=== PATIENT | female | born 1930 | race Caucasian/White ===

== ENCOUNTER 2016-08-28 17:55 | Inpatient (IN) | payer OTHER ==
[~2016-08-28] VITALS: Ht 144.8 cm; Wt 71.2 kg
--- NOTE | ~2016-08-28 | EKG ---
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 : 1930 Requested By: Brendan Wray Order Number: [id number] MD: Ramone Javed Measurements Intervals [place] Rate: 95 P: 40 NH: 143 QRS: 66 QRSD: 82 T: 19 QT: 343 QTc: 431 Interpretive Statements Sinus rhythm Significant abnormality Compared to ECG 08/28/2016 19:42:26 Atrial premature complex(es) no longer present Electronically Signed On 08-31-2016 7:32:34 CDT by Ramone Javed [email or web address] <ELECTRONICALLY SIGNED> By: Ramone Javed MD, [facility] 08/31/16 0732 1014 1014 Ramone Javed MD, [facility] /EPI
--- NOTE | ~2016-08-28 | EKG ---
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 : 1930 Requested By: Clary Skelton Order Number: [id number] MD: Ramone Javed Measurements Intervals [place] Rate: 141 P: ID: QRS: 66 QRSD: 75 T: -17 QT: 289 QTc: 443 Interpretive Statements Atrial fibrillation with rapid V-rate Abnormal R-wave progression, early transition Repolarization abnormality, prob rate related Compared to ECG 08/28/2016 19:42:26 Atrial fibrillation has replaced sinus rhythm ST and T wave abnormalities more pronounced Electronically Signed On 08-31-2016 7:43:50 CDT by Ramone Javed [email or web address] <ELECTRONICALLY SIGNED> By: Ramone Javed MD, [facility] 08/31/16 0743 0105 0105 Ramone Javed MD, [facility] /EPI
--- NOTE | ~2016-08-28 | HC ---
[facility] [place] [address] CONSULTATION Name: CHAZ AGRAWAL Room #: 445-P ADM IN M.R.#: [id number] Admission: 08/28/16 Attend Phys: Enrike Panda MD Discharge: Date of : 29 Report #: [id number] THIS REPORT FOR: //name// CC: Enrike Sheikh Bernardo DATE OF SERVICE: 09/03/2016 HISTORY OF PRESENT ILLNESS: The patient is an 86-year-old female who had a fall resulting in a right hip fracture on 08/28/2016. She underwent a closed reduction and percutaneous pinning of her right femoral neck fracture on 08/29/2016. The patient was doing well postoperatively. She was placed on Xarelto and had a bloody stool yesterday, which she describes as a dark stool. She has never had a colonoscopy or upper endoscopy in the past. She states she had some blood in her stools several weeks ago and this was attributed to possible diverticulosis, although again, she states she has never had a colonoscopy. She denies any abdominal pain. She was taking aspirin on a p.r.n. basis at home. She denies any nausea or vomiting. She denies any dysphagia. Her weight has been stable. She does complain of constipation. In general, she was taking Ex-Lax on a p.r.n. basis. The patient's hemoglobin today is 9.3, on admission was 12.8. She has not received any blood transfusions. She has a history of COPD. She is generally not on oxygen at home. She is currently on 5 liters of nasal canula oxygen. PAST MEDICAL HISTORY: COPD, recent right hip fracture status post surgical fixation, hypothyroidism, previous hysterectomy. FAMILY HISTORY: Negative for colon cancer. ALLERGIES: No known drug allergies. MEDICATIONS: Prior to this admission was aspirin. SOCIAL HISTORY: She denies any tobacco or alcohol use at this time. REVIEW OF SYSTEMS: As per HPI. PHYSICAL EXAMINATION: VITAL SIGNS: Temperature is 97.4, pulse 60, blood pressure 135/50, respiratory rate is 20. GENERAL: She is alert and oriented times 3 in no acute distress. HEENT: Sclerae nonicteric. Oropharynx clear. [address] [address] CONSULTATION Name: CHAZ AGRAWAL Room #: 445-P [facility] IN M.R.#: [id number] Admission: 08/28/16 Attend Phys: Enrike Panda MD Discharge: Date of : 29 Report #: [id number] NECK: Supple, without lymphadenopathy. CARDIOVASCULAR: Regular rate and rhythm. CHEST: Decreased breath sounds bilaterally. ABDOMEN: Soft, nontender, nondistended, normoactive bowel sounds. EXTREMITIES: No cyanosis, clubbing or edema. LABORATORY DATA: Sodium 143, potassium 3.7, chloride 104, bicarbonate 35, BUN 25, creatinine 0.7, glucose 114. INR 1.0. WBC is 11.5, hemoglobin 9.3, platelet count is 323. Chest x-ray on 09/01/2016, cardiomegaly with increasing interstitial prominence suggestive of mild vascular congestion with patchy bilateral lower lobe atelectasis/pneumonitis, right greater than left, probable small right pleural effusion, no evidence of pneumothorax. ASSESSMENT AND PLAN: Gastrointestinal bleed, anemia. The patient reportedly with a dark stool suggesting the possibility of an upper gastrointestinal bleed. She had been on aspirin at home. BUN is mildly elevated. Also of note, the patient has never had a colonoscopy. I had a long discussion with the patient regarding her bleed. She also had a stool that was Hemoccult positive. She has had a drop in her hemoglobin, but appears stable at this time. She was started on PPI therapy yesterday. I would recommend continuing PPI therapy and monitoring hemoglobin closely. Would consider endoscopy; however, the patient is on 5 liters of oxygen at this time and is a very high risk for sedation; therefore, we will continue to monitor closely. If she has a continued drop in her hemoglobin, may consider upper endoscopy in the near future if and when pulmonary function improves. Also, the patient has never had a screening colonoscopy, would consider that at some point as well. We will continue to follow closely. Thank you for allowing me to participate in her care. <ELECTRONICALLY SIGNED> By: Daniel Butler MD 09/04/16 1132 1101 1538 Daniel Butler MD /nt
--- NOTE | ~2016-08-28 | O ---
[facility] [place] [address] OPERATIVE REPORT Name: CHAZ AGRAWAL Room #: 445-P ADM IN M.R.#: [id number] Admission: 08/28/16 Attend Phys: Enrike Panda MD Discharge: Date of : 29 Report #: [id number] THIS REPORT FOR: //name// CC: Enrike Sheikh Bernardo DATE OF SERVICE: 08/29/2016 SERVICE: Orthopedics. FACILITY: [facility] SURGEON: Brendan Wray M.D. TRAY CHECKER SURGEONS: None. PREOPERATIVE DIAGNOSIS: Valgus impacted right femoral neck fracture. POSTOPERATIVE DIAGNOSIS: Valgus impacted right femoral neck fracture. PROCEDURE: Closed reduction percutaneous pinning, right femoral neck fracture. COMPLICATIONS: None. DRAINS: None. SPECIMENS: None. ANESTHESIA TYPE: General endotracheal. ESTIMATED BLOOD LOSS: 50 mL. FINDINGS: 1. Stable reduction with transfer to the operating table and fluoroscopic evaluation. 2. Synthes Titanium cannulated screws times 3. Two 70 mm and one 75 mm in length with washers applied. HISTORY AND INDICATIONS: The patient is an 86-year-old female with COPD, who sustained a same-level fall that resulted in a valgus impacted femoral neck fracture. I had a discussion with her and her daughter last night in great detail about the risks, benefits, alternatives and indications for surgical treatment of hip fractures as well as the surgical option of pinning versus hemiarthroplasty. They were in favor of pinning and I thought this was reasonable option based on the x-rays and her COPD in order to minimize the anesthetic . Risks included but not limited to pain, bleeding, infection, [facility] [address] [place] [address] OPERATIVE REPORT Name: CHAZ AGRAWAL Room #: 445-P [facility] IN ..#: [id number] Admission: 08/28/16 Attend Phys: Enrike Panda MD Discharge: Date of : 29 Report #: [id number] injury to nerves or blood vessels, persistent pain despite surgical intervention, failure of any surgical repair, malunion, nonunion, need for further surgery including revision to hemiarthroplasty and complications related to anesthesia such as stroke, heart attack, pulmonary complications, thromboembolic disease and . Despite these risks, she wished to proceed. PROCEDURE IN DETAIL: After right lower extremity was correctly identified in the preoperative holding area as the operative extremity, the patient was taken to the operating room and placed supine on the operating table. After general endotracheal anesthesia was induced without complication, all bony prominences and subcutaneous nerves were padded appropriately. Prophylactic antibiotics with 2 grams Ancef were administered at the appropriate time. Bilateral lower extremities were placed in traction. X-ray was used to confirm that the fracture alignment was maintained from the initial injury films and then the right lower extremity was prepped and draped in a standard sterile fashion. Under fluoroscopic guidance on multiple planes, the pin trajectory was identified. A 1-inch incision was made on the lateral aspect of the hip. Dissection was taken down in a percutaneous fashion with full-thickness skin developed down to the lateral cortex. The first guidepin was placed as far inferior as possible, also favoring it more posterior to provide some bony support inferiorly and posteriorly. This was advanced under multiple planes of x-ray. Two additional pins were placed more proximally, creating an inverted triangle configuration. The lateral cortex was then over reamed and the first 75-mm length Titanium 7.3-mm cannulated screw was then advanced under fluoroscopy on the inferior cortex. The 75 mm screw was selected as the measurement was approximately 73 mm in length and so I placed 2 washers laterally in order to shorten the length, but to allow maximal thread purchase across the distal segment on the femoral head. This was applied and then compression was applied across the fracture through the screw and the fracture line was noted to compress slightly. A similar technique was used to place the 2 screws proximally, which were both 70 mm in length and 1 washer was used on each of the lateral cortex. Bone was quite soft. After this was completed, all 3 screws were tight with good purchase. The wound was then copiously irrigated after final x-rays were taken to confirm appropriate position of all hardware. The deep fascia was closed with an 0 Vicryl suture in an interrupted fashion and then the skin was closed with 2-0 Vicryl followed by lauren and a sterile dressing was applied. The patient will be touchdown weightbearing in the right lower extremity. There were no complications. All counts were recorded as correct. <ELECTRONICALLY SIGNED> By: Brendan Wray MD 08/29/16 1814 1233 1405 Brendan Wray MD /nt
--- NOTE | ~2016-08-28 | EKG ---
[address] [place] [address] ELECTROCARDIOGRAM REPORT Name: BEST AGRAWALViral Vazquez Room #: 547-P ADM IN M.R.#: [id number] Admission: 08/28/16 Attend Phys: Enrike Panda MD Discharge: Date of : 29 Report #: [id number] THIS REPORT FOR: //name// [facility] Test Date: 2016-08-28 Test Time: 19:42:26 Pat Name: CHAZ AGRAWAL Department: Room: 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
--- NOTE | ~2016-08-28 | D ---
[facility] [place] [address] DISCHARGE SUMMARY Name: NGHIACHAZ George Room #: 445-P [facility] IN M.R.#: [id number] Admission: 08/28/16 Attend Phys: Enrike Panda MD Discharge: 09/04/16 Date of : 29 Report #: [id number] THIS REPORT FOR: //name// CC: Enrike Sheikh Bernardo FINAL DIAGNOSES: 1. Right hip fracture. 2. Paroxysmal atrial fibrillation. 3. Chronic obstructive pulmonary disease exacerbation. 4. Pulmonary edema. 5. Gastrointestinal bleed. HOSPITAL COURSE: The patient was admitted from home with a fall and diagnosed with a right hip fracture. She underwent surgical repair. Please see the note. Postoperatively, she had complications of pulmonary edema, COPD exacerbation, paroxysmal atrial fibrillation and confusion. She was treated medically and supportive measures with the pulmonary service and Cardiology. They started on Xarelto for DVT prophylaxis, but had a concern for GI bleed and it was discontinued. GI service did not feel she was medically stable to pursue endoscopy at this point; therefore, anticoagulation was just discontinued. She was placed on a proton pump inhibitor. She had no other interval complications. PHYSICAL EXAMINATION: GENERAL: On the day of discharge, she was awake and alert, sitting up in the bedside table. VITAL SIGNS: Temperature was 36.5, pulse 56, respirations 20, blood pressure 145/34 and O2 sat 98% on oxygen. LUNGS: Clear. HEART: Regular. ABDOMEN: Soft. EXTREMITIES: Had no edema. DISPOSITION: She is being transferred to ____ for therapy. She will continue toe touch weightbearing. Medications have been signed and transfer. Follow up with me in 6 weeks or after skilled discharge and Orthopedics in 2 weeks. <ELECTRONICALLY SIGNED> By: Enrike Panda MD 09/05/16 0954 1332 1512 Enrike Panda MD /nt
--- NOTE | ~2016-08-28 | HC ---
[facility] [place] [address] CONSULTATION Name: CHAZ AGRAWAL Room #: 445-P ADM IN M.R.#: [id number] Admission: 08/28/16 Attend Phys: Enrike Panda MD Discharge: Date of : 29 Report #: [id number] THIS REPORT FOR: //name// CC: Enrike Sheikh Bernardo SERVICE: Orthopedics. REQUESTING PHYSICIAN: Enrike Panda M.D. REASON FOR CONSULTATION: Right hip fracture. PAST MEDICAL HISTORY: COPD and diverticulitis. MEDICATIONS: None. ALLERGIES: None. PAST SURGICAL HISTORY: Right ankle open reduction and internal fixation approximately 10 years ago. SOCIAL HISTORY: The patient has a history of tobacco use. She no longer uses tobacco. There is no alcohol or drug abuse. She lives in [place] with her son. FAMILY HISTORY: Diverticulitis. REVIEW OF SYSTEMS: Negative for chest pain, shortness of breath, mental status changes, nausea, vomiting, diarrhea, skin changes or any urinary complaints. Positive only for hip pain and recent diverticulitis. CHIEF COMPLAINT: Right hip pain. HISTORY OF PRESENT ILLNESS: The patient is an 86-year-old female who was going to [place] with her son when she fell on a curb and landed on her right side. She sustained a contusion to the right elbow and a valgus impacted-type right femoral neck fracture. She was admitted to the hospital after her workup demonstrated the previously stated diagnoses. Orthopedics was consulted for evaluation and she was admitted to Dr. Enrike Panda' service. PHYSICAL EXAMINATION: VITAL SIGNS: Pulse 79, respirations 20, blood pressure 160s/70s and pulse ox 89% to 90% while I am evaluating her. She is 92% to 94% throughout the stay. Her oxygen level improves when she is instructed to breathe through the nasal cannula. GENERAL: She is elderly appearing female who appears her stated age. She is lying supine in the hospital bed, in no acute distress. She is using accessory [address] [address] CONSULTATION Name: CHAZ AGRAWAL Room #: 445-P ADM IN .R.#: [id number] Admission: 08/28/16 Attend Phys: Enrike Panda MD Discharge: Date of : 29 Report #: [id number] muscles in the abdomen for respiration. She is appropriate and cooperative with a normal affect. EXTREMITIES: Bilateral upper extremities, she has range of motion of the shoulders, elbows, wrists and fingers. She has contusion on the right elbow. She is grossly neurovascularly intact. Right lower extremity has a 1+ palpable pulse, which is symmetric with the left side. The right hip is not manipulated due to the known diagnosis. Palpation of the thigh, knee, leg and ankle is negative for acute injury. She has motor and sensory function intact to the foot distally. Left lower extremity shows no signs of acute orthopedic injury. She is grossly neurovascularly intact. IMAGING: Two views of the elbow show some mild degenerative changes. There is no acute fracture. AP pelvis & lateral of the right hip shows a right femoral neck fracture with a valgus impacted pattern. IMPRESSION: An 86-year-old female with history of chronic obstructive pulmonary disease with a right valgus impacted femoral neck fracture. PLAN: I had a long discussion with the patient as well as her daughter who is at the bedside regarding the optimal treatment options for hip fracture. We reviewed the risks, benefits, alternatives and indications for surgical versus nonsurgical treatment as well as optimal treatment for a femoral neck fracture, specifically, reviewing pinning versus hemiarthroplasty. Based on the x-rays, I recommend percutaneous pinning as the surgical burden will be less significant and I think this is likely to successfully heal without the need for more invasive surgery with arthroplasty. Questions were answered. We reviewed the need for early and aggressive physical therapy postoperatively. <ELECTRONICALLY SIGNED> By: Brendan Wray MD 08/29/16 1814 2257 1100 Brendan Wray MD /nt
--- NOTE | ~2016-08-28 | HC ---
[facility] [place] [address] CONSULTATION Name: CHAZ AGRAWAL Room #: 445-P [facility] IN M.R.#: [id number] Admission: 08/28/16 Attend Phys: Anna Panda MD Discharge: 09/04/16 Date of : 29 Report #: [id number] THIS REPORT FOR: //name// CC: ANNA Panda Stany Bernardo DATE OF SERVICE: 08/30/2016 REFERRING PROVIDER: Anna Panda M.D. REASON FOR CONSULTATION: Hypoxemia and COPD. HISTORY OF PRESENT ILLNESS: Our group was asked to see the patient in consultation while hospitalized at [facility]. The patient is not reliable historian at this time as she is a little confused, history taken from discussion with healthcare providers and review of records. An 86-year-old woman with a prior history of tobacco use and COPD, states she is not really on any inhaled therapy at home. At this time, he does not require supplemental oxygen. Apparently had a fall 2 days ago and noted to have right proximal femur fracture, underwent surgical intervention yesterday, had some confusion overnight postoperatively. Did require BiPAP, details are little bit scanty in the records. The patient was hypoxemic and placed on supplemental BiPAP due to significant hypoxemia. We were asked to see this afternoon to further evaluate. The patient is off BiPAP on 5 liters, appears reasonably comfortable, oxygen saturation 93-94% with minimal cough. No fever, chills or sweats, not feeling ill prior to admission. Of note, otherwise had also had some difficulty with atrial fibrillation, rapid ventricular response that occurred overnight and has been doing better since rate has been controlled currently on amiodarone drip. Does not appear in any distress at this time, appears pleasant without tachypnea; however, is somewhat confused. ALLERGIES: No known drug allergies. PAST MEDICAL HISTORY: 1. History of tobacco use with a history of COPD, severity not quantified and records available. Does not require supplemental oxygen. 2. Hypothyroidism. OUTPATIENT MEDICATIONS: None. PAST SURGICAL HISTORY: Hysterectomy and prior ankle fracture repair. SOCIAL HISTORY: No active tobacco or alcohol use. Currently lives with son. FAMILY HISTORY: Noncontributory due to advanced age. [facility] [address] [place] [address] CONSULTATION Name: CHAZ AGRAWAL Room #: 445-P [facility] IN [facility].#: [id number] Admission: 08/28/16 Attend Phys: Anna Panda MD Discharge: 09/04/16 Date of : 29 Report #: [id number] REVIEW OF SYSTEMS: A 12-point review of systems otherwise negative except as described in HPI and difficult otherwise to obtain due to current confusion. PHYSICAL EXAMINATION: VITAL SIGNS: Afebrile, pulse 60s and regular, respiratory rate of 20s, blood pressure 122/37, oxygen saturation 93% on 5 liters nasal cannula. GENERAL: This is a pleasant elderly woman in no distress. ENT: Reveals no dental caries. Mallampati 2 airway. NECK: Supple, no lymphadenopathy. LUNGS: Diminished, occasional expiratory wheezes noted. CARDIOVASCULAR: Heart was regular. No murmurs noted. ABDOMEN: Soft, mild distention, no masses. EXTREMITIES: Revealed soft wrist restraints in place and the upper extremities with no significant edema, 2+ pulses noted throughout. LABORATORY DATA: White blood cell count 17,000, hemoglobin 11, hematocrit 34, platelet count 247. Sodium 137, potassium 4.0, chloride 102, bicarbonate 27, BUN 17, creatinine 0.9, glucose is 140. TSH 2.56. INR 1.0. Arterial blood gas yesterday on 50% face simple mask revealed pH 7.35, pCO2 of 50, pO2 of 74, bicarbonate 27. Chest x-ray reveals some mild cardiomegaly with probable left atrial enlargement as evidenced by straightening of the left heart border and splaying of the mainstem stem iris, some mild pulmonary artery enlargement also appreciated, mild atelectasis and small pleural effusion in the right also appreciated on portable film done this morning at 8:05, some mild pulmonary vascular engorgements may suggest mild pulmonary edema also noted. IMPRESSION: 1. Status post right hip Open reduction and internal fixation. 2. Chronic obstructive pulmonary disease with some active wheezes on exam. 3. Leukocytosis. 4. Mild pulmonary edema. 5. Atelectasis. 6. Small pleural effusion. 7. Mild delirium likely multifactorial to include pain medications. SUGGESTIONS: 1. Follow up arterial blood gas. 2. Titrate FiO2. 3. EzPAP. 4. Continue with nocturnal BiPAP as tolerated. 5. Bronchodilators, we will change to levalbuterol given rapid ventricular response as well as add nebulized steroids. 6. No systemic steroids at this time. 7. We will continue to follow along with you. [facility] [address] [place] [address] CONSULTATION Name: CHAZ AGRAWAL Room #: 445-P [facility] IN M.R.#: [id number] Admission: 08/28/16 Attend Phys: Anna Panda MD Discharge: 09/04/16 Date of : 29 Report #: [id number] Thank you for requesting our suggestions. <ELECTRONICALLY SIGNED> By: Santiago Blackwell MD 09/25/16 1253 1430 2134 Santiago Blackwell MD /nt
--- NOTE | ~2016-08-28 | H ---
[facility] [place] [address] HISTORY AND PHYSICAL Name: CHAZ AGRAWAL Room #: 547-P ADM IN M.R.#: [id number] Admission: 08/28/16 Attend Phys: Enrike Panda MD Discharge: Date of : 28 Report #: [id number] THIS REPORT FOR: //name// CC: Enrike Sheikh Bernardo DATE OF SERVICE: 08/28/2016 CHIEF COMPLAINT: Right hip pain. HISTORY OF PRESENT ILLNESS: The patient is an 86-year-old female who was brought to the Emergency Room after suffering a fall when she tripped over a curb in a parking lot and was too week to get up, her son has to help her up but she was having pain on her right leg, was unable to stand or walk, evaluation in the ER has revealed a proximal right femur fracture. PAST MEDICAL HISTORY: Chronic obstructive pulmonary disease, hypothyroidism. PAST SURGICAL HISTORY: She has had a hysterectomy. FAMILY HISTORY: Noncontributory. SOCIAL HISTORY: No chronic alcohol or tobacco use. ALLERGIES: None. MEDICATIONS: None. REVIEW OF SYSTEMS: She denies shortness of breath, chest pain, abdominal pain, nausea, vomiting, diarrhea, constipation, dysuria, syncope. OBJECTIVE: VITAL SIGNS: Temperature 36.5, pulse 96, respirations 26, blood pressure 148/53, O2 sat % on 2 liters. GENERAL: She is awake and alert, in no distress. LUNGS: Clear with no wheezing. HEART: Regular, without murmur. ABDOMEN: Soft, normoactive bowel sounds, no palpable masses, nontender. EXTREMITIES: No cyanosis, clubbing or edema. NEUROLOGIC: Motor strength 4/5 throughout. LABORATORY DATA: White cell count of 16, hemoglobin 12, coagulation studies are normal chemistries normal. Chest x-ray shows some mild atelectasis. EKG revealed sinus rhythm with PACs. ASSESSMENT: [facility] [address] [place] [address] HISTORY AND PHYSICAL Name: CHAZ AGRAWAL Room #: 547-P [facility] IN [facility]#: [id number] Admission: 08/28/16 Attend Phys: Enrike Panda MD Discharge: Date of : 29 Report #: [id number] 1. Right femoral neck fracture. 2. Chronic obstructive pulmonary disease. 3. Hypothyroidism. 4. Gait disturbance. 5. Accidental fall. PLAN: She is clear to proceed with surgery today and pulmonary treatments will be ordered, she had very faint wheezing on exam and there is a remote history of emphysema, although she has never been treated. Postoperatively, then we will consider her rehabilitation options. <ELECTRONICALLY SIGNED> By: Enrike Panda MD 08/29/16 1411 0838 [id number] Enrike Panda MD /nt
--- NOTE | ~2016-08-28 | 2DMMODE ---
[facility] [place] [address] 2 D/M-MODE ECHOCARDIOGRAM Name: CHAZ AGRAWAL Room #: 445-P ADM IN ..#: [id number] Admission: 08/28/16 Attend Phys: Suhail Venegas Discharge: Date of : 28 Date of Service: 08/30/16 [facility] [place] Report #: [id number] THIS REPORT FOR: //name// APPROVED REPORT Study performed: 08/30/2016 11:17:11 EXAM: Comprehensive 2D, Doppler, and color-flow Echocardiogram Patient Location: Echo lab Blood Pressure: 117/32 mmHg HR: 70 bpm Other Information Study Quality: Fair Indications COPD Post op Atrial firbrillation. 2D Dimensions RVDd: 32.93 mm IVC: 21.00 mm Volumes Left Atrial Volume (Systole) Single Plane 4CH: 44.73 mL Single Plane 2CH: 44.87 mL LA ESV Index: 31.00 mL/m2 Aortic Valve AoV Peak Anthony.: 1.51 m/s AI PHT: 345.52 ms AO Peak Gr.: 9.07 mmHg LV Max P.91 mmHg LV Max: 1.41 m/s AI Vmax: 3.00 m/s AI [place]: 2.52 m/s2 Mitral Valve MV Peak Gr.: 16.34 mmHg MV PHT: 82.52 ms MV Mean Gr.: 5.57 mmHg MV E Max Anthony.: 1.69 m/s E/A Ratio: 1.2 MV A Anthony.: 1.45 m/s MV Decel. Time: 284.54 ms MV Max Anthony.: 2.02 m/s [facility] [address] [place] [address] 2 D/M-MODE ECHOCARDIOGRAM Name: CHAZ AGRAWAL Room #: 445-P ADM IN [facility]#: [id number] Admission: 08/28/16 Attend Phys: Suhail Venegas Discharge: Date of : 28 Date of Service: 08/30/16 1300 Report #: [id number] MV Mean Anthony.: 1.08 m/s MV VTI: 647.10 mm Pulmonary Valve PV Peak Anthony.: 0.99 m/s PV Peak Gr.: 3.92 mmHg Tricuspid Valve TR Peak Anthony.: 3.93 m/s RAP Estimate: 10.00 mmHg TR Peak Gr.: 61.90 mmHg Left Ventricle The left ventricle is normal size. There is normal LV segmental wall motion. There is normal left ventricular wall thickness. Left ventricular systolic function is hyperdynamic. LVEF is 65-70%. The left ventricular diastolic function is normal. Right Ventricle The right ventricle is normal size. The right ventricular systolic function is normal. Atria The left atrium size is normal. The right atrium size is normal. Aortic Valve The aortic valve is normal in structure. Aortic valve is calcified. Mild to moderate aortic regurgitation. There is no aortic valvular stenosis. Mitral Valve The mitral valve is normal in structure. Mild mitral regurgitation. There is no mitral valve stenosis. Tricuspid Valve The tricuspid valve is normal in structure. There is mild tricuspid regurgitation. The right atrial pressure is estimated at 10 mmHg. There is severe pulmonary hypertension. The estimated PAPwas 72 mmHg. Pulmonic Valve The pulmonary valve is normal in structure. There is no pulmonic valvular regurgitation. Great Vessels The aortic root is normal in size. IVC is dilated and collapses >50% with inspiration. [facility] [address] [place] [address] 2 D/M-MODE ECHOCARDIOGRAM Name: CHAZ AGRAWAL Room #: 445-P ADM IN .R.#: [id number] Admission: 08/28/16 Attend Phys: Suhail Venegas Discharge: Date of : 28 Date of Service: 08/30/16 1300 Report #: [id number] Pericardium There is no pericardial effusion. <Conclusion> The left ventricle is normal size. LVEF is 65-70%. The aortic valve is normal in structure. Aortic valve is mildly calcified. Mild aortic regurgitation. The mitral valve is normal in structure. Mild mitral regurgitation. The tricuspid valve is normal in structure. There is mild tricuspid regurgitation. The right atrial pressure is estimated at 10 mmHg. There is severe pulmonary hypertension. The estimated PAPwas 72 mmHg. <ELECTRONICALLY SIGNED> By: Dominick Serrano MD 08/30/16 1300 1300 1300 Dominick Serrano MD /INF
[2016-08-28 17:55] VITALS: BP 177/52
[~2016-08-28 17:55] MED LIST: THYROID MED
[2016-08-28 21:02] LABS: HEMATOCRIT 40.3 % (37.0-47.0); HEMOGLOBIN 12.8 gm/dL (12.0-15.0); MCH 26.1 pg (26.0-34.0); MCHC 31.9 g/dL (28.0-37.0); MCV 82.1 fL (80.0-100.0); RBC 4.91 mil/uL (4.20-5.00); RDW 14.7 % (10.5-14.5); WBC 16.9 thou/uL (4.0-11.0)
[2016-08-28 21:12] LABS: CALCIUM 8.9 mg/dL (8.5-10.1); CREATININE 0.7 mg/dL (0.6-1.0); POTASSIUM 4.2 mmol/L (3.5-5.1)
[2016-08-28 21:15] LABS: PROTIME 10.6 Seconds (9.3-11.4)
[2016-08-28 23:09] VITALS: BP 164/76
[2016-08-29] VITALS (12 sets, daily range): BP systolic 98–148; BP diastolic 36–62
[2016-08-29 04:55] LABS: URINE BILIRUBIN NEGATIVE (Negative); URINE BLOOD TRACE (Negative); URINE COLOR YELLOW; URINE GLUCOSE-RANDOM* NEGATIVE (Negative); URINE KETONES NEGATIVE (Negative); URINE NITRITE NEGATIVE (Negative); URINE PROTEIN (DIPSTICK) NEGATIVE (Negative); URINE SPECIFIC GRAVITY >= 1.030 (1.003-1.035); URINE UROBILINOGEN 0.2 E.U./dl (0.2-1.0)
[2016-08-30] VITALS (17 sets, daily range): BP systolic 62–129; BP diastolic 24–78
[2016-08-30 01:57] LABS: ABG SAMPLE TYPE ARTERIAL; BE(vivo) 0.5 mmol/L (-2 to +3); HCO3 26.7 mmol/L (22.0-26.0); LACTATE 1.42 mmol/L (0.5-2.0); O2(CT) 16.3 mL/dL (15.0-23.0); O2Hb 93.7 % (92.0-98.0); PCO2 49.7 mmHg (35.0-45.0); PO2 74.4 mmHg (80.0-100.0); STICK SITE R.BRACHIAL; pH 7.348 (7.360-7.450); sO2 94.1 % (92.0-98.0); tCO2 28.2 mmol/L (24.0-30.0)
[2016-08-30 05:27] LABS: HEMATOCRIT 33.8 % (37.0-47.0); MCH 26.1 pg (26.0-34.0); MCHC 31.5 g/dL (28.0-37.0); MCV 82.9 fL (80.0-100.0); RBC 4.07 mil/uL (4.20-5.00); RDW 15.2 % (10.5-14.5); WBC 16.6 thou/uL (4.0-11.0)
[2016-08-30 05:31] LABS: HEMOGLOBIN 10.6 gm/dL (12.0-15.0)
[2016-08-30 05:39] LABS: CALCIUM 8.4 mg/dL (8.5-10.1); CREATININE 0.9 mg/dL (0.6-1.0)
[2016-08-31] VITALS (8 sets, daily range): BP systolic 117–156; BP diastolic 31–55
[2016-08-31 04:16] LABS: HEMATOCRIT 29.9 % (37.0-47.0); HEMOGLOBIN 9.5 gm/dL (12.0-15.0); MCH 26.6 pg (26.0-34.0); MCHC 31.9 g/dL (28.0-37.0); MCV 83.2 fL (80.0-100.0); RBC 3.6 mil/uL (4.20-5.00); RDW 15.2 % (10.5-14.5); WBC 15.2 thou/uL (4.0-11.0)
[2016-08-31 04:41] LABS: CREATININE 1.1 mg/dL (0.6-1.0); POTASSIUM 4.2 mmol/L (3.5-5.1)
[2016-08-31 07:02] LABS: ABG SAMPLE TYPE ARTERIAL; BE(vivo) -2.8 mmol/L (-2 to +3); HCO3 23.6 mmol/L (22.0-26.0); LACTATE 1.12 mmol/L (0.5-2.0); O2Hb 93.7 % (92.0-98.0); PCO2 47.7 mmHg (35.0-45.0); PO2 76.2 mmHg (80.0-100.0); pH 7.312 (7.360-7.450); tCO2 25.1 mmol/L (24.0-30.0)
[2016-08-31 07:03] LABS: FIO2 50 %; STICK SITE L.BRACHIAL
[2016-09-01 04:18] VITALS: BP 147/36
[2016-09-01 05:42] LABS: HEMATOCRIT 30.9 % (37.0-47.0); HEMOGLOBIN 9.7 gm/dL (12.0-15.0); MCHC 31.4 g/dL (28.0-37.0); MCV 82.8 fL (80.0-100.0); RBC 3.73 mil/uL (4.20-5.00); RDW 15.1 % (10.5-14.5); WBC 13.3 thou/uL (4.0-11.0)
[2016-09-01 05:47] LABS: CALCIUM 8.5 mg/dL (8.5-10.1); CREATININE 0.8 mg/dL (0.6-1.0); POTASSIUM 3.9 mmol/L (3.5-5.1)
[2016-09-01 07:40] VITALS: BP 154/46
[2016-09-01 11:05] VITALS: BP 109/52
[2016-09-01 16:05] VITALS: BP 129/43
[2016-09-01 20:19] VITALS: BP 133/33
[2016-09-02 07:52] VITALS: BP 134/45
[2016-09-02 11:20] LABS: HEMATOCRIT 32.7 % (37.0-47.0); HEMOGLOBIN 10.4 gm/dL (12.0-15.0); MCH 26.2 pg (26.0-34.0); MCHC 31.9 g/dL (28.0-37.0); MCV 82.1 fL (80.0-100.0); RBC 3.98 mil/uL (4.20-5.00); RDW 14.9 % (10.5-14.5); WBC 11.5 thou/uL (4.0-11.0)
[2016-09-02 11:22] LABS: PLATELET COUNT 323 thou/uL (150-400)
[2016-09-02 11:23] LABS: MANUAL DIFF YES
[2016-09-02 11:29] LABS: CREATININE 0.8 mg/dL (0.6-1.0); POTASSIUM 3.9 mmol/L (3.5-5.1)
[2016-09-02 12:01] LABS: ABSOLUTE NEUTROPHILS 9.7 thou/uL (1.4-8.2); TOTAL CELL COUNT 100
[2016-09-02 12:04] LABS: ANISOCYTOSIS 1+; POLYCHROMASIA OCCASIONAL
[2016-09-02 12:14] VITALS: BP 105/39
[2016-09-02 12:15] VITALS: BP 130/33
[2016-09-02 16:00] VITALS: BP 136/35
[2016-09-02 20:43] VITALS: BP 136/38
[2016-09-02 23:56] VITALS: BP 113/61
[2016-09-03 03:00] VITALS: BP 127/37
[2016-09-03 05:46] LABS: HEMATOCRIT 28.8 % (37.0-47.0); HEMOGLOBIN 9.3 gm/dL (12.0-15.0)
[2016-09-03 05:58] LABS: CALCIUM 8.1 mg/dL (8.5-10.1); CREATININE 0.7 mg/dL (0.6-1.0); POTASSIUM 3.7 mmol/L (3.5-5.1)
[2016-09-03 08:22] VITALS: BP 123/32
[2016-09-03 12:35] VITALS: BP 120/31
[2016-09-03 17:22] VITALS: BP 124/31
[2016-09-03 21:48] VITALS: BP 111/36
[2016-09-04 03:50] VITALS: BP 125/30
[2016-09-04 05:47] LABS: ABSOLUTE NEUTROPHILS 8.8 thou/uL (1.4-8.2); BASOPHILS 0.5 % (0.0-2.0); EOSINOPHILS 2.7 % (0.0-3.0); HEMATOCRIT 29.2 % (37.0-47.0); HEMOGLOBIN 9.3 gm/dL (12.0-15.0); MCH 26.3 pg (26.0-34.0); MCHC 31.7 g/dL (28.0-37.0); MONOCYTES 8.6 % (1.0-8.0); PLATELET COUNT 313 thou/uL (150-400); POLYS 77.2 % (36.0-66.0); RBC 3.52 mil/uL (4.20-5.00); RDW 15.4 % (10.5-14.5); WBC 11.4 thou/uL (4.0-11.0)
[2016-09-04 06:07] LABS: CALCIUM 8.4 mg/dL (8.5-10.1); CREATININE 0.9 mg/dL (0.6-1.0); POTASSIUM 3.9 mmol/L (3.5-5.1)
[2016-09-04 06:09] LABS: MANUAL DIFF NO
[2016-09-04 08:28] VITALS: BP 136/30
[2016-09-04 11:48] VITALS: BP 145/34
[2016-09-04] MEDS ORDERED: IPRATROPIU0.2 MG/1 M INH (13:20)
[2016-09-04] MEDS ORDERED: XOPENEX 0.63 MG/3 M1 INH (13:21)
[2016-09-04] MEDS ORDERED: HYDROCODON-ACE1 EAC7 PO (13:21)
[2016-09-04] MEDS ORDERED: ACETAMINOPHEN325 M1 PO (13:21)
[2016-09-04] MEDS ORDERED: PACERONE 200 M200 M1 PO (13:21)
[2016-09-04] MEDS ORDERED: PULMICORT0.5 MG/21 INH (13:22)
[2016-09-04] MEDS ORDERED: PANTOPRAZOLE SO40 M1 PO (13:28)
[2016-09-04] MEDS ORDERED: LASIX 40 MG TAB40 M2 PO (13:34)
[2016-09-04] MEDS ORDERED: POTASSIUM CHLOR8 MEQ PO (13:36)
== END 2016-09-04 16:13 | DRG 480 ==
LOC: ER 17:55 → 4S 19:36 → 5S 19:36 → EROBS 19:36 → 5S 23:09 → 4S 08-29 14:38
PROVIDERS: Internal Medicine; Internal Medicine Cardiovascular Disease; Internal Medicine Endocrinology, Diabetes & Metabolism; Internal Medicine Geriatric Medicine; Internal Medicine Pulmonary Disease; Nurse Practitioner Gerontology; Orthopaedic Surgery Sports Medicine; Physician Assistant; Specialist
PROC: 0QS634Z Reposition Right Upper Femur with Internal Fixation Device, Percutaneous Approach (ICD-10-PCS; principal; 2016-08-29)
PROC: 5A09357 Assistance with Respiratory Ventilation, Less than 24 Consecutive Hours, Continuous Positive Airway Pressure (ICD-10-PCS; 2016-08-29)
PROC: 02HV33Z Insertion of Infusion Device into Superior Vena Cava, Percutaneous Approach (ICD-10-PCS; 2016-08-30)
PROC: B548ZZA Ultrasonography of Superior Vena Cava, Guidance (ICD-10-PCS; 2016-08-30)
DX: S72.001A Fracture of unspecified part of neck of right femur, initial encounter for closed fracture (principal); J96.01 Acute respiratory failure with hypoxia; G93.41 Metabolic encephalopathy; J98.11 Atelectasis; J90 Pleural effusion, not elsewhere classified; K92.2 Gastrointestinal hemorrhage, unspecified; J44.1 Chronic obstructive pulmonary disease with (acute) exacerbation; S50.00XA Contusion of unspecified elbow, initial encounter; E03.9 Hypothyroidism, unspecified; D72.829 Elevated white blood cell count, unspecified; R41.0 Disorientation, unspecified; D64.9 Anemia, unspecified; I48.0 Paroxysmal atrial fibrillation; R26.9 Unspecified abnormalities of gait and mobility; I27.2 Other secondary pulmonary hypertension; W18.39XA Other fall on same level, initial encounter; Y93.89 Activity, other specified; Y92.89 Other specified places as the place of occurrence of the external cause; Y99.8 Other external cause status; Z87.891 Personal history of nicotine dependence; Z90.710 Acquired absence of both cervix and uterus; Z83.79 Family history of other diseases of the digestive system; Z79.899 Other long term (current) drug therapy
CPT/HCPCS: 10086; 10100; 10195; 27000; 50010; 50101; 50386; 51412; 51538; 52304; 56524; 57092; 62110; 62900; 70005

== ENCOUNTER → 2016-10-31 | Outpatient (CLI) | payer OTHER ==
[~2016-10-31] MED LIST changes: +ACETAMINOPHEN325 M1 PO; +HYDROCODON-ACE1 EAC7 PO; +IPRATROPIU0.2 MG/1 M INH; +LASIX 40 MG TAB40 M2 PO; +PACERONE 200 M200 M1 PO; +PANTOPRAZOLE SO40 M1 PO; +POTASSIUM CHLOR8 MEQ PO; +PULMICORT0.5 MG/21 INH; +XOPENEX 0.63 MG/3 M1 INH
== END ==
LOC: RAD 13:16
DX: J44.9 Chronic obstructive pulmonary disease, unspecified (principal)

== ENCOUNTER 2017-08-16 13:48 | Inpatient (IN) | payer OTHER ==
[~2017-08-16] VITALS: Ht 160 cm; Wt 64.0 kg
--- NOTE | ~2017-08-16 | 2DMMODE ---
[facility] [address] [place] [address] 2 D/M-MODE ECHOCARDIOGRAM Name: CHAZ AGRAWAL Room #: 214-P [facility] IN ..#: [id number] Admission: 08/16/17 Attend Phys: Kevan Damon, Discharge: Date of : 29 Date of Service: 08/18/17 1042 Report #: [id number] THIS REPORT FOR: //name// APPROVED REPORT Study performed: 08/18/2017 07:42:43 EXAM: Comprehensive 2D, Doppler, and color-flow Echocardiogram Patient Location: Bedside Room #: 214 Status: routine BSA: 1.67 HR: 78 bpm BP: 104/73 mmHg Other Information Study Quality: Good Indications Atrial Fibrillation 2D Dimensions RVDd: 35.76 mm LVEF(%): 44.84 (>50%) IVSd: 14.96 (7-11mm) LVOT Diam: 16.70 (18-24mm) LVDd: 34.77 mm PWd: 13.54 (7-11mm) LVDs: 27.24 (25-40mm) Aortic Root: 25.32 mm IVC: 20.00 mm Stapleton's LVEF: 44.84 % Volumes Left Atrial Volume (Systole) Single Plane 4CH: 57.37 mL Single Plane 2CH: 66.78 mL LA ESV Index: 39.00 mL/m2 Aortic Valve AoV Peak Anthony.: 1.19 m/s AO Peak Gr.: 5.64 mmHg LVOT Max P.32 mmHg LVOT Max V: 0.76 m/s MEDHAT Vmax: 1.40 cm2 AI Vmax: 3.66 m/s AI [place]: 4.40 m/s2 AI PHT: 241.14 ms Mitral Valve [facility] [address] [place] [address] 2 D/M-MODE ECHOCARDIOGRAM Name: CHAZ AGRAWAL Room #: 214-[facility].#: [id number] Admission: 08/16/17 Attend Phys: Kevan Damon, Discharge: Date of : 29 Date of Service: 08/18/17 1042 Report #: [id number] MV Peak Gr.: 28.98 mmHg MV Mean Gr.: 7.95 mmHg MV Decel. Time: 227.62 ms MV Max Anthony.: 2.69 m/s MV Mean Anthony.: 1.19 m/s MV VTI: 528.72 mm MV PHT: 66.01 ms MVA (PHT): 2.81 cm2 IVRT: 38.06 ms Pulmonary Vein P Vein S: 0.38 m/s P Vein D: 0.66 m/s P Vein S/D Ratio: 0.58 Tricuspid Valve TR Peak Anthony.: 3.95 m/s RAP Estimate: 10.00 mmHg TR Peak Gr.: 62.46 mmHg PA Pressure: 73.00 mmHg Left Ventricle The left ventricle is normal size. hypokinesis of inferior segment. Mild concentric left ventricular hypertrophy. Left ventricular systolic function is mild to moderately decreased. LVEF is 40-45%. Transmitral Doppler flow pattern suggests restrictive physiology. Right Ventricle The right ventricle is normal size. Atria Left atrium is mildly dilated. Right atrium is mildly dilated. Aortic Valve Aortic valve is thickened but has adequate excursion. Moderate aortic regurgitation. There is no aortic valvular stenosis. Mitral Valve Moderate mitral annular calcification. Moderate to severe mitral regurgitation No evidence of mitral valve stenosis. Tricuspid Valve The tricuspid valve is normal in structure. Moderate tricuspid regurgitation. PAP is estimated at 63 mmHg. [facility] [address] [place] [address] 2 D/M-MODE ECHOCARDIOGRAM Name: CHAZ AGRAWAL Room #: [address] [place] [address] [place] [facility].#: [id number] Admission: 08/16/17 Attend Phys: Kevan Damon, Discharge: Date of : 29 Date of Service: 08/18/17 1042 Report #: [id number] Pulmonic Valve Pulmonic valve is not well visualized. Pulmonic valve is grossly normal in structure. Great Vessels The aortic root is normal in size. IVC is dilated and collapses <50% with inspiration. Pericardium There is no pericardial effusion. <Conclusion> The left ventricle is normal size. Mild concentric left ventricular hypertrophy. Left ventricular systolic function is mild to moderately decreased. Transmitral Doppler flow pattern suggests restrictive physiology. The right ventricle is normal size. Left atrium is mildly dilated. Right atrium is mildly dilated. Moderate aortic regurgitation. Moderate mitral annular calcification. Moderate to severe mitral regurgitation Moderate tricuspid regurgitation. PAP is estimated at 63 mmHg. <ELECTRONICALLY SIGNED> By: Marco Ram MD 08/18/17 1042 104 41 Marco Ram MD /INF
--- NOTE | ~2017-08-16 | EKG ---
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 : 1930 Requested By: David Juarez Order Number: [id number] MD: Ramone Javed Measurements Intervals [place] Rate: 126 P: [place]: QRS: 47 QRSD: 83 T: 65 QT: 289 QTc: 419 Interpretive Statements Atrial fibrillation Inferoposterior infarct, acute (RCA) Compared to ECG 08/30/2016 01:05:18 Right bundle-branch block no longer present Electronically Signed On 08-16-2017 17:38:06 CDT by Ramone Javed [email or web address] <ELECTRONICALLY SIGNED> By: Ramone Javed MD, [facility] 08/16/17 1738 1435 1435 Ramone Javed MD, [facility] /EPI
--- NOTE | ~2017-08-16 | EKG ---
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 : 1930 Requested By: Ramone Javed Order Number: [id number] MD: Alin Crump Measurements Intervals [place] Rate: 111 P: GA: QRS: 53 QRSD: 81 T: 83 QT: 317 QTc: 431 Interpretive Statements Atrial fibrillation Inferior infarct, acute (RCA) Probable RV involvement, suggest recording right precordial leads Compared to ECG 08/16/2017 14:35:54 No significant changes Electronically Signed On 08-17-2017 14:00:42 CDT by Alin Crump [email or web address] <ELECTRONICALLY SIGNED> By: Alin Crump MD 08/17/17 1400 3 3 Alin Crump MD /[facility]
--- NOTE | ~2017-08-16 | EKG ---
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 : 1930 Requested By: Shankar Cuevas Order Number: [id number] MD: Ramone Javed Measurements Intervals [place] Rate: 150 P: TN: QRS: 77 QRSD: 120 T: 0 QT: 309 QTc: 489 Interpretive Statements Atrial fibrillation with rapid V-rate Right bundle branch block Inferior infarct, acute Lateral leads are also involved Compared to ECG 08/30/2016 01:05:18 Right bundle-branch block now present Myocardial infarct finding now present Electronically Signed On 08-16-2017 17:37:17 CDT by Ramone Javed [email or web address] <ELECTRONICALLY SIGNED> By: Ramone Javed MD, FACC 08/16/17 1737 1404 1404 Ramone Javed MD, [facility] /EPI
--- NOTE | ~2017-08-16 | HC ---
[facility] [place] [address] CONSULTATION Name: CHAZ AGRAWAL Room #: 214-P [facility] IN M.R.#: [id number] Admission: 08/16/17 Attend Phys: Kevan Damon DO Discharge: 08/19/17 Date of : 29 Report #: [id number] THIS REPORT FOR: //name// CC: Kevan Damon Pippa Norman HISTORY OF PRESENT ILLNESS: The patient is an 87-year-old woman with history of severe COPD with pulmonary hypertension. She has had paroxysmal atrial fibrillation and sick sinus syndrome as well as history of GI blood loss, presumably from gastritis and an upper GI bleed about a year ago. She now presents with generalized weakness and loss of appetite. She has had more than usual shortness of breath. Earlier in the week, she had a fever to 102 degrees. She saw Pippa Norman in the office today and was referred to the Emergency Department. Her EKG on presentation demonstrated atrial fibrillation with a rapid ventricular response and inferior injury pattern. Code STEMI was activated. She denies chest heaviness or pressure. Her current primary problem is related to exertional breathlessness. She has had rather marked immobility issues as a consequence of arthritis and prior hip replacement. She has lower extremity flexion contractures. She has an intolerance to ASPIRIN. ALLERGIES: No known drug allergies. MEDICINES: Include Atrovent, Xopenex, Pacerone 200 mg daily, Protonix, Lasix 40 mg daily, potassium 8 mEq daily. PAST MEDICAL HISTORY: Medical records have been reviewed and include history of severe pulmonary hypertension, COPD, hysterectomy, paroxysmal atrial fibrillation, history of GI bleeding, hip surgery. SOCIAL HISTORY: She is a former smoker, quit in 2005. FAMILY HISTORY: Unremarkable for premature coronary disease. REVIEW OF SYSTEMS: All systems negative except as that noted above. PHYSICAL EXAMINATION: GENERAL: An elderly woman who is mildly breathless. VITAL SIGNS: Blood pressure is 120/50, heart rate of 100 and irregular. She is afebrile, 5 feet 3 inches tall, 150 pounds. HEENT: There are neither xanthelasma, subcutaneous xanthomata, oral mucosal or digital cyanosis or kyphoscoliosis present. CHEST: Reveals diminished breath sounds at both bases. CARDIOVASCULAR: Irregularly irregular rhythm with normal S1, S2. ABDOMEN: Soft and nontender. EXTREMITIES: Reveal 1+ pitting edema. Radial pulses are 2+. NEUROLOGIC: She is alert with a nonfocal exam. [facility] [address] [address] CONSULTATION Name: CHAZ AGRAWAL Room #: 214-P [facility] IN [facility].#: [id number] Admission: 08/16/17 Attend Phys: Kevan Damon DO Discharge: 08/19/17 Date of : 29 Report #: [id number] LABORATORY DATA: Sodium 141, potassium 3.6, creatinine 1.2, troponin 3.68. ProBNP of 7500. White count 13,000, hemoglobin 11, hematocrit 36, platelet count 462. Chest x-ray demonstrates chronic lung changes, cardiomegaly. EKG is detailed above. IMPRESSION: 1. Acute inferior myocardial infarction. 2. Atrial fibrillation with a rapid ventricular response; history of sick sinus syndrome. 3. History of gastrointestinal blood loss, presumably upper gastrointestinal bleed with prior use of aspirin. 4. Severe pulmonary hypertension; chronic obstructive pulmonary disease. RECOMMENDATIONS: 1. I had a long discussion with the patient with regards to treatment options for her acute [place]. She favors a very conservative, noninvasive approach to probably very high-grade coronary disease. She understands the life threatening nature of this current problem. 2. I have added very low dose Cardizem, nitrates and low-dose aspirin to her medical regimen. 3. Careful use of AV efrain blocking agents given her history of bradycardia. 4. Continued supportive, noninterventional care for her coronary artery disease. Thank you for asking me to participate in her care. <ELECTRONICALLY SIGNED> By: Ramone Javed MD, FACC 08/20/17 0722 1536 1920 Ramone Javed MD, FACC /nt
[2017-08-16 13:56] VITALS: BP 112/44
[2017-08-16 14:31] LABS: ABSOLUTE NEUTROPHILS 11.3 thou/uL (1.4-8.2); BASOPHILS 0.5 % (0.0-2.0); HEMATOCRIT 36.8 % (37.0-47.0); HEMOGLOBIN 11.9 gm/dL (12.0-15.0); LYMPHOCYTES 7.7 % (24.0-44.0); MCH 26.5 pg (26.0-34.0); MCHC 32.3 g/dL (28.0-37.0); MCV 82.1 fL (80.0-100.0); MONOCYTES 4.8 % (1.0-8.0); PLATELET COUNT 462 thou/uL (150-400); RBC 4.48 mil/uL (4.20-5.00); WBC 13.2 thou/uL (4.0-11.0)
[2017-08-16 14:37] LABS: CALCIUM 9.8 mg/dL (8.5-10.1); CREATININE 1.2 mg/dL (0.6-1.0); POTASSIUM 3.6 mmol/L (3.5-5.1)
[2017-08-16 14:49] LABS: TROPONIN-I 3.68 ng/mL (<0.06)
[2017-08-16 15:45] LABS: APTT 29.6 Seconds (24.5-32.8)
[2017-08-16 16:15] VITALS: BP 120/51
[2017-08-16 16:50] LABS: TSH 3.217 uIU/mL (0.358-3.740)
[2017-08-16 17:12] VITALS: BP 102/59
[2017-08-16 17:30] VITALS: BP 83/59
[2017-08-17] VITALS (7 sets, daily range): BP systolic 104–128; BP diastolic 53–73
[2017-08-17 04:50] LABS: CHOLESTEROL 161 mg/dL (<200); HDL CHOLESTEROL 26 mg/dL (>40); LDL CHOLESTEROL 120 mg/dL (<100); TC:HDL 6.2 Ratio (Not establshd); TRIGLYCERIDE 78 mg/dL (<150); VLDL 16 mg/dL (<40)
[2017-08-17 04:52] LABS: SERUM ASSESSMENT Clear
[2017-08-17 06:30] LABS: URINE BILIRUBIN NEGATIVE (Negative); URINE BLOOD NEGATIVE (Negative); URINE CLARITY CLEAR; URINE COLOR YELLOW; URINE GLUCOSE-RANDOM* NEGATIVE (Negative); URINE KETONES NEGATIVE (Negative); URINE LEUKOCYTES-REFLEX NEGATIVE (Negative); URINE NITRITE-REFLEX NEGATIVE (Negative); URINE PROTEIN (DIPSTICK) NEGATIVE (Negative); URINE SPECIFIC GRAVITY 1.025 (1.005-1.035); URINE UROBILINOGEN 0.2 E.U./dl (0.2-1.0)
[2017-08-18 04:28] LABS: ABSOLUTE NEUTROPHILS 17.8 thou/uL (1.4-8.2); BASOPHILS 0.4 % (0.0-2.0); HEMATOCRIT 30.9 % (37.0-47.0); HEMOGLOBIN 10.1 gm/dL (12.0-15.0); LYMPHOCYTES 2.9 % (24.0-44.0); MCH 26.3 pg (26.0-34.0); MCHC 32.6 g/dL (28.0-37.0); MCV 80.7 fL (80.0-100.0); MONOCYTES 2.6 % (1.0-8.0); PLATELET COUNT 503 thou/uL (150-400); POLYS 94.1 % (36.0-66.0); RBC 3.83 mil/uL (4.20-5.00); RDW 15.9 % (10.5-14.5); WBC 18.9 thou/uL (4.0-11.0)
[2017-08-18 04:33] LABS: CALCIUM 9.3 mg/dL (8.5-10.1); CREATININE 1.4 mg/dL (0.6-1.0); POTASSIUM 4.4 mmol/L (3.5-5.1)
[2017-08-18 07:30] VITALS: BP 123/66
[2017-08-18 11:20] VITALS: BP 120/56
[2017-08-18 15:25] VITALS: BP 120/56
[2017-08-18 20:01] VITALS: BP 122/51
[2017-08-19 04:59] VITALS: BP 114/62
[2017-08-19] MEDS ORDERED: ATORVASTATIN CA40 MG PO (08:02)
[2017-08-19] MEDS ORDERED: ASPIR 8181 MG PO (08:03)
[2017-08-19] MEDS ORDERED: CARDIZEM CD120 MG PO (08:03)
[2017-08-19] MEDS ORDERED: NITROGLYCERIN0.4 MG SUBLING (08:03)
[2017-08-19 09:05] VITALS: BP 117/50
[2017-08-19 10:48] VITALS: BP 126/62
== END 2017-08-19 12:16 | disposition home or self-care (01) | DRG 280 ==
LOC: ER 13:48 → 2N 15:42 → EROBS 15:42 → 2N 17:46
PROVIDERS: Emergency Medicine; Family Medicine; Nurse Practitioner; Physician Assistant
DX: I21.19 ST elevation (STEMI) myocardial infarction involving other coronary artery of inferior wall (principal); E43 Unspecified severe protein-calorie malnutrition; N17.9 Acute kidney failure, unspecified; I49.5 Sick sinus syndrome; J44.9 Chronic obstructive pulmonary disease, unspecified; I27.20 Pulmonary hypertension, unspecified; I48.0 Paroxysmal atrial fibrillation; I25.10 Atherosclerotic heart disease of native coronary artery without angina pectoris; I34.0 Nonrheumatic mitral (valve) insufficiency; E86.0 Dehydration; Z98.42 Cataract extraction status, left eye; Z98.41 Cataract extraction status, right eye; Z90.710 Acquired absence of both cervix and uterus; Z79.899 Other long term (current) drug therapy; Z87.891 Personal history of nicotine dependence
CPT/HCPCS: 10081